=== PATIENT | female | born 1965 | race Caucasian/White ===

== ENCOUNTER → 2020-06-07 | Outpatient (CLI) | payer MEDICARE, OTHER ==
[~2020-06-07] MED LIST: AMITRIPTYLINE H75 MG PO; ASPIR 8181 MG PO; BYDUREON P2 MG/0.65 SQ; CITALOPRAM HBR20 MG PO; CRESTOR40 MG PO; FENOFIBRATE145 MG PO; GABAPENTIN PO; HUMALOG100 UNIT/1 SQ; HYDROXYZINE PAM25 MG PO; ISOSORBIDE MON120 MG PO; LASIX20 MG PO; LIORESAL TAB 1010 MG PO; LORTAB 10-3251 EACH PO; LOTREL 5-40 MG1 EACH PO; METOPROLOL SUCC50 MG PO; NITRO SL; OMEPRAZOLE40 MG PO; PRIMIDONE50 MG PO; RANITIDINE HCL300 MG PO; ROPINIROLE HCL2 MG PO; TOUJEO SQ; VITAMIN D50000 UNIT PO; ZYLOPRIM 100 M100 MG PO
== END ==
LOC: EMI 10:21
DX: R56.9 Unspecified convulsions (principal); R93.0 Abnormal findings on diagnostic imaging of skull and head, not elsewhere classified
CPT/HCPCS: 70553; A9577

== ENCOUNTER → 2020-10-26 | Day surgery (SDC) | payer MEDICARE, OTHER ==
[~2020-10-26] MED LIST changes: +CYCLOBENZAPRINE5 MG PO; +FAMOTIDINE20 MG PO; +LOSARTAN POTAS100 MG PO; +MELOXICAM7.5 MG PO; +NAPROXEN375 M1 PO; +PRAVASTATIN SOD10 MG PO; +TIZANIDINE HCL4 MG PO
== END | disposition home or self-care (01) ==
LOC: OR 06:55
DX: K74.60 Unspecified cirrhosis of liver (principal); K76.6 Portal hypertension; K64.0 First degree hemorrhoids; K64.4 Residual hemorrhoidal skin tags; R16.0 Hepatomegaly, not elsewhere classified; R16.1 Splenomegaly, not elsewhere classified; I12.9 Hypertensive chronic kidney disease with stage 1 through stage 4 chronic kidney disease, or unspecified chronic kidney disease; E11.22 Type 2 diabetes mellitus with diabetic chronic kidney disease; N18.30 Chronic kidney disease, stage 3 unspecified; E78.2 Mixed hyperlipidemia; K21.9 Gastro-esophageal reflux disease without esophagitis; F41.9 Anxiety disorder, unspecified; F32.9 Major depressive disorder, single episode, unspecified; G40.909 Epilepsy, unspecified, not intractable, without status epilepticus; E66.01 Morbid (severe) obesity due to excess calories; Z98.84 Bariatric surgery status; Z68.41 Body mass index [BMI] 40.0-44.9, adult; Z88.0 Allergy status to penicillin; Z79.899 Other long term (current) drug therapy
CPT/HCPCS: 80076; 82962; J2001; J2250; J2704; J7040